=== PATIENT | male | born 1960 | race Hispanic/Latino ===

== ENCOUNTER → 2018-01-28 | Day surgery (SDC) | payer MEDICARE, OTHER ==
[2015-01-12 07:28] VITALS: BMI 25.9
[~2018-01-28] MED LIST: Propofol 10 mg/ml Inj (20 ML) ONE
--- NOTE | 2018-01-28 09:01 | CP.SDSHP ---
Same Day Surgery H & P - History Proposed Procedure: colonoscopy Pre-Op Diagnosis: h/o colon polyps, large adenoma 2014 - Previous Medical/Surgical History Cardiac: Hypertension, ASHD/CAD, Other (hyperllipidemia, ) Pulmonary: Emphysema/COPD Endocrine/Metabolic: Diabetes Neuro: Seizure Disorder Misc: Other (colon polyps, diverticulosis ) - Allergies Allergies: Allergies Penicillins Allergy (Verified 01/28/18 08:45) SWELLING - Physical Exam Mental Status: Alert & Oriented x3 Neuro: WNL Heart: WNL Lungs: WNL GI: WNL - Impression Impression: h/o colon polyps Pt. Evaluated Today:Candidate for Anesthesia & Procedure: Yes - Date & Time Date: 01/28/18 Time: 09:01 Short Stay Discharge - Short Stay Discharge Admitting Diagnosis/Reason for Visit: DIVERTICULOSIS, H/O COLON POLYPS Disposition: HOME/ ROUTINE
[2018-01-28 10:04] VITALS: TEMP 98.6
[2018-01-28 11:02] VITALS: BP 130/67; PULSE 59; RESP 17; O2SAT 95
== END | disposition home or self-care (01) ==
LOC: C.ENDO 08:07
PROVIDERS: ATTEND Internal Medicine Gastroenterology
DX: K57.90 Diverticulosis of intestine, part unspecified, without perforation or abscess without bleeding (principal); Z86.010 Personal history of colon polyps; K59.00 Constipation, unspecified; K64.8 Other hemorrhoids
CPT/HCPCS: 45378; 82948; J2001; J2704